=== PATIENT | male | born 1955 | race Caucasian/White ===

== ENCOUNTER 2019-07-03 15:38 | Outpatient (CLI) | payer OTHER ==
--- NOTE | 2019-07-03 16:14 | CT ---
CT chest noncontrast low-dose screening. HISTORY: 30 year history of smoking.. Currently smoking. FINDINGS: Lungs are hyperinflated with scattered mild bullae. Mild peripheral interstitial scarring. Scattered tiny pleural-based densities. Below the threshold for measurable nodule. No pleural fluid or pneumothorax. Lack of contrast limits evaluation of the soft tissues. No bulky mediastinal adenopathy. IMPRESSION: Lung RADS category 1. Negative. Suggest routine screening. Emphysema.
== END 2019-07-03 15:39 | disposition home or self-care (01) ==
LOC: CT 15:38
PROVIDERS: ATTEND Family Medicine
DX: F17.210 Nicotine dependence, cigarettes, uncomplicated (principal)
CPT/HCPCS: G0297

== ENCOUNTER 2021-10-22 08:07 | Outpatient (CLI) | payer OTHER | END 2021-10-22 08:08 | disposition home or self-care (01) | LOC: BICCT 08:07 | PROVIDERS: ATTEND Physician Assistant Medical | DX: R05.9 Cough, unspecified (principal); R19.7 Diarrhea, unspecified; R63.4 Abnormal weight loss; R68.81 Early satiety; E27.8 Other specified disorders of adrenal gland; N28.1 Cyst of kidney, acquired | CPT/HCPCS: 71046; 74160; 82565 ==

== ENCOUNTER 2021-11-10 08:10 | Outpatient (CLI) | payer OTHER | END 2021-11-10 08:11 | disposition home or self-care (01) | LOC: CT 08:10 | PROVIDERS: ATTEND Physician Assistant Medical | DX: E27.8 Other specified disorders of adrenal gland (principal); N28.1 Cyst of kidney, acquired | CPT/HCPCS: 74170; 82565 ==

== ENCOUNTER 2024-10-24 09:34 | Outpatient (CLI) | payer OTHER, MEDICARE ==
[2024-10-24 10:49] LABS: #Basophils 0.09 10x3/uL (0.0-0.2); %Basophils 1.3 % (0.0-1.0); %Eosinophils 1.8 % (0.0-10.0); %Lymphocytes 24.7 % (21.0-51.0); %Monocytes 9.8 % (0.0-10.0); Hematocrit 44.6 % (42.0-52.0); Hemoglobin 15.4 g/dL (14.0-18.0); Mean Corpuscular HGB CONC 34.5 g/dL (32.0-36.0); Mean Corpuscular Volume 89.7 fL (78.0-98.0); Platelet Count 255 10x3/uL (130-400); Red Blood Cell (RBC) Count 4.97 mill/uL (4.70-6.10)
[2024-10-24 11:15] LABS: ALT (SGPT) 22 U/L (8-55); AST (SGOT) 21 U/L (5-34); Albumin 3.9 g/dL (3.4-4.8); Alkaline Phosphatase 90 U/L (40-110); Anion Gap 12 mmol/L (10-20); BUN (Urea Nitrogen) 17 mg/dL (8.4-25.7); Bilirubin, Total 0.3 mg/dL (0.2-1.2); Calc. Creatinine Clearance 0 mL/min (70-130); Calcium 9.4 mg/dL (7.8-10.44); Carbon Dioxide 26 mmol/L (23-31); Chloride 106 mmol/L (98-107); Estimated GFR 93; Globulin 2.7 g/dL (2.4-3.5); Glucose 100 mg/dL (80-115); Potassium 4.3 mmol/L (3.5-5.1); Protein, Total 6.6 g/dL (5.8-8.1); Sodium 140 mmol/L (136-145)
== END 2024-10-24 09:35 | disposition home or self-care (01) ==
LOC: LABBT 09:34
PROVIDERS: ATTEND Surgery
DX: Z01.818 Encounter for other preprocedural examination (principal); D17.1 Benign lipomatous neoplasm of skin and subcutaneous tissue of trunk
CPT/HCPCS: 80053; 85025

== ENCOUNTER → 2024-10-25 | Day surgery (SDC) | payer OTHER, MEDICARE ==
[2024-10-24 09:39] VITALS: BMI 22.2
[~2024-10-25] MED LIST: Bupivacaine 0.25% HCL 30 ML VIAL ONE; CEFAZOLIN 2 GM VIAL ONE; Dexamethasone 20 MG/5 ML VIAL ONE; EPINEPHrine 1 MG/ML AMP ONE; Ketorolac Tromethamine 30 MG (1 mL) VIAL ONE; Midazolam HCl 2 mg/2 ml Vial ONE; Ondansetron PF 4 MG/2 ML Vial ONE; PROPOFOL 200 MG/20 ML VIAL ONE; fentaNYL PF 100 MCG/2 ML SYRINGE ONE
== END ==
LOC: SDC 08:00
PROVIDERS: ATTEND Surgery
PROC: 0JB70ZZ Excision of Back Subcutaneous Tissue and Fascia, Open Approach (ICD-10-PCS; principal; 2024-10-25)
DX: D17.1 Benign lipomatous neoplasm of skin and subcutaneous tissue of trunk (principal); F32.A Depression, unspecified; F17.200 Nicotine dependence, unspecified, uncomplicated; Z90.49 Acquired absence of other specified parts of digestive tract; Z79.899 Other long term (current) drug therapy
CPT/HCPCS: 88304; A6258; J0171; J0665; J1100; J1885; J2250; J2405; J2704